=== PATIENT | female | born 1940 | race Caucasian/White ===

== ENCOUNTER 2017-03-12 05:08 | Emergency (ER) | payer MEDICARE, OTHER ==
[2017-03-12 06:45] LABS: BILIRUBIN,TOTAL 0.39 mg/dL (0.0-1.0); CALCIUM 9.8 mg/dL (8.7-10.7); CREATININE 1.9 mg/dL (0.6-1.3); POTASSIUM 4.9 mmol/L (3.5-5.1); TOTAL PROTEIN 6.1 gm/dL (6.4-8.2)
[2017-03-12 06:56] LABS: HEMATOCRIT 33.5 % (34-45); HEMOGLOBIN 11.4 g/dL (11.2-15.7); MEAN CORPUSCULAR HEMOGLOBIN 31.9 pg (27.0-33.0); MEAN CORPUSCULAR VOLUME 93.8 fL (79-95); RED BLOOD COUNT 3.57 x10_6/uL (3.9-5.2); WHITE BLOOD COUNT 8.6 x10_3/uL (4.0-10.0)
[2017-03-12 06:57] LABS: PLATELET COUNT 147 x10_3/uL (182-369)
== END 2017-03-12 07:15 | disposition home or self-care (01) ==
LOC: ER 05:08
PROVIDERS: Emergency Medicine
DX: R42 Dizziness and giddiness (principal); E11.9 Type 2 diabetes mellitus without complications; J44.9 Chronic obstructive pulmonary disease, unspecified; Z90.49 Acquired absence of other specified parts of digestive tract; Z90.710 Acquired absence of both cervix and uterus; Z88.5 Allergy status to narcotic agent
CPT/HCPCS: 36415; 80053; 82550; 82553; 85025; 93005; 99284; 99284-25